=== PATIENT | male | born 1960 | race Hispanic/Latino ===

== ENCOUNTER → 2025-02-10 | Day surgery (SDC) | payer MEDICARE ==
[2025-02-03 11:50] LABS: BASOPHILS % 0.4 % (0.0-1.0); EOSINOPHILS # (AUTO) 0.1 (0.0-0.4); EOSINOPHILS % 2.3 % (0.0-6.0); HEMATOCRIT 38.4 % (38.2-49.6); HEMOGLOBIN 13.2 g/dL (14.0-18.0); LYMPHOCYTES # (AUTO) 1.4 (1.0-3.2); LYMPHOCYTES % 28.5 % (18.0-39.1); MEAN CORPUSCULAR HEMOGLOBIN 34.4 pg (28-32); MEAN CORPUSCULAR HGB CONC 34.4 g/dL (31-35); MONOCYTES # (AUTO) 0.5 (0.2-0.8); MONOCYTES % 9.9 % (4.4-11.3); NEUTROPHILS # (AUTO) 2.8 (2.1-6.9); NEUTROPHILS % 58.7 % (38.7-80.0); PLATELET COUNT 95 x10e3/uL (140-360); RED BLOOD COUNT 3.84 x10e6/uL (4.3-5.7); RED CELL DISTRIBUTION WIDTH 12.5 % (11.7-14.4); WHITE BLOOD COUNT 4.73 x10e3/uL (4.8-10.8)
[2025-02-03 12:03] LABS: INR 0.95; PROTHROMBIN TIME 13.3 seconds (11.9-14.5)
[2025-02-03 12:04] LABS: PARTIAL THROMBOPLASTIN TIME 27.6 seconds (23.8-35.5)
[2025-02-03 12:13] LABS: ALBUMIN 3.8 g/dL (3.5-5.0); ANION GAP 12.4 mmol/L (8-16); BILIRUBIN,TOTAL 0.6 mg/dL (0.2-1.2); CALCIUM 9.1 mg/dL (8.4-10.2); CREATININE, SERUM 0.75 mg/dL (0.72-1.25); POTASSIUM 4.4 mmol/L (3.5-5.1); TOTAL PROTEIN 7.7 g/dL (6.5-8.1)
[~2025-02-10] MED LIST: ARICEPT5 MG PO; CLOPIDOGREL75 MG PO; FENTANYL CITRATE/PF 100MCG/2 ML INJ ONE; FLOMAX0.4 MG PO; GABAPENTIN300 MG PO; GLUCAGON FOR INJ 1 MG VIAL ONE; GLYCOPYRROLATE INJ 0.2 MG/ML VIAL ONE; HYOSCYAMINE SULFATE 0.5 MG/ML INJ ONE; LIPITOR10 MG PO; MEMANTINE HCL10 MG PO; ONDANSETRON HCL 4 MG ORAL DISINTEGRATING TAB ONE; PROPOFOL IV EMULSION 10 MG/ML 20 ML VIAL ONE; PROPOFOL IV EMULSION 50 ML IV ONE
[2025-02-10] MEDS: LACTATED RINGER'S 1,000 ML ONE (07:56)
[2025-02-10 08:30] VITALS: TEMP 97.9
[2025-02-10 09:00] VITALS: BP 124/86; PULSE 84; RESP 16; O2SAT 99
[2025-02-10] MEDS: ONDANSETRON HCL 4 MG ORAL DISINTEGRATING TAB PO ONE (09:00)
[2025-02-12 09:47] LABS: HEPATITIS A ANTIBODY IGM (P) Negative; HEPATITIS B CORE IGM (P) Negative; HEPATITIS B SURFACE AG (P) Negative; HEPATITIS C ANTIBODY Non Reactive
== END | disposition home or self-care (01) ==
LOC: OR 06:17
PROVIDERS: ATTEND Internal Medicine Gastroenterology
DX: D64.89 Other specified anemias (principal); K63.5 Polyp of colon; K29.50 Unspecified chronic gastritis without bleeding; I85.00 Esophageal varices without bleeding; K76.6 Portal hypertension; K59.09 Other constipation; K31.89 Other diseases of stomach and duodenum; K64.8 Other hemorrhoids; I10 Essential (primary) hypertension; I69.351 Hemiplegia and hemiparesis following cerebral infarction affecting right dominant side; H91.90 Unspecified hearing loss, unspecified ear; N40.0 Benign prostatic hyperplasia without lower urinary tract symptoms; G62.9 Polyneuropathy, unspecified; Z71.89 Other specified counseling; Z71.3 Dietary counseling and surveillance; Z01.810 Encounter for preprocedural cardiovascular examination; Z01.812 Encounter for preprocedural laboratory examination; Z79.02 Long term (current) use of antithrombotics/antiplatelets; Z79.899 Other long term (current) drug therapy
CPT/HCPCS: 36415; 43235; 43239; 45378; 45385; 80053; 85025; 85610; 85730; 88305; 93005; J1610; J1980; J2470; Q0162

== ENCOUNTER → 2025-02-18 | Outpatient (REF) | payer MEDICARE ==
[~2025-02-18] MED LIST changes: -FENTANYL CITRATE/PF 100MCG/2 ML INJ ONE; -GLUCAGON FOR INJ 1 MG VIAL ONE; -GLYCOPYRROLATE INJ 0.2 MG/ML VIAL ONE; -HYOSCYAMINE SULFATE 0.5 MG/ML INJ ONE; -ONDANSETRON HCL 4 MG ORAL DISINTEGRATING TAB ONE; -PROPOFOL IV EMULSION 10 MG/ML 20 ML VIAL ONE; -PROPOFOL IV EMULSION 50 ML IV ONE
== END ==
LOC: US 09:51
PROVIDERS: ATTEND Internal Medicine Gastroenterology
DX: K76.9 Liver disease, unspecified (principal); K80.20 Calculus of gallbladder without cholecystitis without obstruction
CPT/HCPCS: 76705